=== PATIENT | male | born 2000 | race Caucasian/White ===

== ENCOUNTER 2020-08-21 15:26 | Emergency (ER) | payer OTHER ==
[2020-08-21 15:32] VITALS: BP 132/77
[2020-08-21] MEDS ORDERED: GLUCAGON 1 MG/ML VIAL IVP STA (15:52)
--- NOTE | 2020-08-21 16:40 | ED Physician Documentation ---
History of Present Illness - Stated complaint Stated Complaint: FB IN THROAT - Chief complaint Chief Complaint: Heent - History obtained from History obtained from: Patient - Additonal information Additional information: 20yM previously healthy p/w foreign body sensation while eating fried rice today. pain is constant, mild, sudden onset, localized to the throat, a/w inability to swallow fluids/solids. denies other issues. denies sob or stridor. no cough Review of Systems Constitutional: denies: Fever Respiratory: denies: Cough GI: reports: Other (bolus sensation) PD PAST MEDICAL HISTORY - Past Medical History Past Medical History: No - Past Surgical History Past Surgical History: No - Allergies Allergies/Adverse Reactions: Allergies Allergy/AdvReac Type Severity Reaction Status Date / Time No Known Drug Allergies Allergy Verified 08/21/20 15:32 - Social History Does the pt smoke?: No Smoking Status: Never smoker Does the pt have substance abuse?: No PD ED PE NORMAL - Vitals Vital signs reviewed: Yes - General General: Alert and oriented X 3, No acute distress, Well developed/nourished - HEENT HEENT: Atraumatic, PERRL, EOMI, Moist mucous membranes, Pharynx benign - Cardiac Cardiac: RRR - Respiratory Respiratory: No respiratory distress, Clear bilaterally - Derm Derm: Normal color, Warm and dry - Neuro Neuro: Alert and oriented X 3 Results - Vitals Vitals: Vital Signs - 24 hr 08/21/20 15:28 Heart Rate 86 Respiratory 14 Rate Blood Pressure 132/77 H O2 Saturation 99 Oxygen O2 Source Room air PD MEDICAL DECISION MAKING - ED course ED course: 20-year-old with prior history of bullous sensation in the throat presents with bolus sensation after eating fried rice. This has now resolved after glucagon, pop rocks, and soda. Return precautions given. Patient will follow up with his primary doctor. Departure - Departure Disposition: 01 Home, Self Care Clinical Impression: Bolus impaction of digestive tract Condition: Good Instructions: ED Foreign Body Esophageal Rslv, ED Screening Exam Medical Nonurgent Comments: You were seen in the emergency department for a foreign body sensation in your throat. We gave you pop rocks, soda, and a medicine called glucagon and it resolved your issue. Return to the emergency department if you have any new or worsening symptoms or other concerns. Follow-up with your primary doctor Discharge Date/Time: 08/21/20 16:46
== END 2020-08-21 16:46 | disposition home or self-care (01) ==
LOC: ED 15:26
DX: R09.89 Other specified symptoms and signs involving the circulatory and respiratory systems (principal); T18.128A Food in esophagus causing other injury, initial encounter; X58.XXXA Exposure to other specified factors, initial encounter
CPT/HCPCS: 96374; 99284

== ENCOUNTER 2024-01-25 12:39 | Day surgery (SDC) | payer OTHER ==
--- NOTE | 2024-01-25 13:54 | ED Physician Documentation ---
PD HPI HEENT - Stated complaint Stated Complaint: PILL STUCK IN THROAT - Chief complaint Chief Complaint: General - History obtained from History obtained from: Patient - History of Present Illness Timing - onset: How many hours ago (1), Today (about noon.) Timing - duration: Hours (1) Timing - details: Abrupt onset, Still present (The patient states he had a grilled cheese sandwich and seemed to be swallowing okay. About 10 to 15 minutes later he took an ibuprofen tablet and felt that it would not go down and had to spit back up the water he drank with that. Subsequently he is spitting up saliva as well.) Location: Throat (He feels his esophagus is blocked and unable to swallow even saliva. Has happened several times previously.) Associated symptoms: Unable to swallow. No: Fever, Congestion, Rhinorrhea Similar symptoms before: Diagnosis (He has had this happen multiple times where he will have a feeling of initial bites of food stuck for several minutes and then improved. He has been to the ER twice for it in the last year or so and resolved with IV fluids/medications/carbonation. Denies regular reflux type symptoms or heartburn.) Recently seen: Not recently seen Review of Systems Constitutional: denies: Fever, Chills Nose: reports: Congestion. denies: Rhinorrhea / runny nose Throat: denies: Sore throat Respiratory: reports: Cough (mild) PD PAST MEDICAL HISTORY - Past Medical History Past Medical History: No Cardiovascular: None Respiratory: None Neuro: None Endocrine/Autoimmune: None GI: None : None HEENT: None Psych: None Musculoskeletal: None Derm: None - Past Surgical History Past Surgical History: No - Present Medications Home Medications: Ambulatory Orders Medication Instructions Recorded Confirmed No Known Home Medications 01/25/24 01/25/24 - Allergies Allergies/Adverse Reactions: Allergies Allergy/AdvReac Type Severity Reaction Status Date / Time No Known Drug Allergies Allergy Verified 01/25/24 14:06 - Social History Does the pt smoke?: No Smoking Status: Never smoker Does the pt have substance abuse?: No PD ED PE NORMAL - Vitals Vital signs reviewed: Yes - General General: Alert and oriented X 3, Well developed/nourished, Other (He is holding an emesis bag and spitting up saliva every couple of minutes. No noted blood.) - HEENT HEENT: Pharynx benign, Other (Normal voice and unlabored respirations without any wheezing.) - Cardiac Cardiac: RRR, No murmur - Respiratory Respiratory: No respiratory distress, Clear bilaterally - Abdomen Abdomen: Soft, Non tender - Derm Derm: Normal color, Warm and dry - Neuro Neuro: Alert and oriented X 3, No motor deficit, Normal speech Results - Vitals Vitals: Vital Signs - 24 hr 01/25/24 01/25/24 01/25/24 12:42 17:16 21:02 Temperature 37.3 C 36.9 C 36.5 C Heart Rate 83 69 77 Heart Rate [ Brachial] Respiratory 16 16 16 Rate Blood Pressure 129/73 115/66 118/56 L Blood Pressure [Left Brachial artery] O2 Saturation 100 100 99 01/25/24 01/25/24 01/25/24 21:05 21:10 21:15 Temperature 36.6 C 36.5 C 36.5 C Heart Rate 62 59 L 54 L Heart Rate [ Brachial] Respiratory 17 15 17 Rate Blood Pressure 118/56 L 112/60 113/58 L Blood Pressure [Left Brachial artery] O2 Saturation 100 100 100 01/25/24 01/25/24 01/25/24 21:21 21:33 21:41 Temperature 36.5 C 36.5 C 36.6 C Heart Rate 54 L 67 Heart Rate [ 67 Brachial] Respiratory 14 18 16 Rate Blood Pressure 115/55 L 121/74 Blood Pressure 132/76 H [Left Brachial artery] O2 Saturation 100 100 99 01/25/24 21:57 Temperature 37.0 C Heart Rate 64 Heart Rate [ Brachial] Respiratory 18 Rate Blood Pressure 123/79 Blood Pressure [Left Brachial artery] O2 Saturation 97 Oxygen O2 Source Room air - Labs Labs: Laboratory Tests 01/25/24 14:14 Sodium 139 Potassium 3.9 Chloride 105 Carbon Dioxide 29 Anion Gap 5.0 L BUN 10 Creatinine 0.9 Estimated GFR (MDRD) 104 Glucose 93 Calcium 9.4 Total Bilirubin 0.4 AST 23 ALT 20 Alkaline Phosphatase 59 Total Protein 6.9 Albumin 4.4 Globulin 2.5 Albumin/Globulin Ratio 1.8 Lipase 20 PD Medical Decision Making - ED course Complexity details: re-evaluated patient (Dr. Christian did finish with his office patients and came to see the patient here in the ER. This gave a bit more time to see if this would spontaneously or medication related improve. However the patient is still needing to spit up his saliva and seems esophageal impacted. Plan to go to the OR.), considered differential, d/w peoplesoft consultant (Dr. Long) ED course: The patient had taken an [id number] ibuprofen and felt like it got stuck in his esophagus and is unable to swallow saliva subsequently. He had eaten a grilled cheese sandwich about 20 minutes prior to that but did not feel anything was stuck at that point. He has had similar episodes occasionally that last for just a few minutes and then resolve. He has been to the ER twice in the last 2 years for obstructive type patterns like this that had resolved with IV fluids glucagon and carbonated beverages. He has not gotten a formal referral for GI or general surgery for endoscopy despite the several prior episodes. On the most recent ER visit, it was suggested he follow-up with his primary for such a referral. The patient states it did not go through the referral process. He denies any regular reflux type symptoms. He does not experience heartburn regularly. Otherwise healthy. Departure - Departure Disposition: ED Transfer to [facility] Clinical Impression: Food impaction of esophagus Condition: Stable Record reviewed to determine appropriate education?: Yes Discharge Date/Time: 01/25/24 20:22
[2024-01-25] MEDS: SODIUM CHLORIDE 0.9% 1,000 ML IV STA ×2 (14:28→15:41)
[2024-01-25] MEDS: LORazepam 2 MG/ML VIAL IVP STA ×2 (14:28→15:41)
[2024-01-25] MEDS: GLUCAGON 1 MG/ML VIAL IVP STA (14:29)
[2024-01-25 14:37] LABS: ALBUMIN 4.4 g/dL (3.2-5.5); ALBUMIN/GLOBULIN RATIO 1.8 (1.0-2.2); BILIRUBIN,TOTAL 0.4 mg/dL (0.2-1.0); CALCIUM 9.4 mg/dL (8.5-10.3); CREATININE 0.9 mg/dL (0.6-1.3); POTASSIUM 3.9 mmol/L (3.5-4.5); TOTAL PROTEIN 6.9 g/dL (6.4-8.9)
[2024-01-25] MEDS: PANTOPRAZOLE 40 MG VIAL IVP STA (18:05)
[2024-01-25] MEDS ORDERED: SUCCINYLCHOLINE 200 MG/10 ML VIAL ONE (20:19)
[2024-01-25] MEDS ORDERED: fentaNYL 100 MCG/2 ML VIAL ONE (20:19)
[2024-01-25] MEDS ORDERED: PROPOFOL 200 MG/20 ML VIAL IVP ONE (20:19)
[2024-01-25] MEDS ORDERED: MIDAZOLAM 2 MG/2 ML VIAL ONE (20:20)
--- NOTE | 2024-01-25 20:23 | HISTORY & PHYSICAL EXAMINATION ---
Chief Complaint - Chief Complaint Chief Complaint: food and single motrin tab stuck in esophagus History of Present Illness - History Obtained From Records Reviewed: yes History obtained from: pt Exam Limitations: none - History of Present Illness HPI Comment/Other: he had a grilled cheese and a single 200 motrin tab at lunch time. has not been able to swallow since. similar troubles over the last 3 years which would resolve. he has not had endoscopy. he does not describe heartburn troubles. History - Past Medical History Cardiovascular: reports: None Respiratory: reports: None Neuro: reports: None Endocrine/Autoimmune: reports: None GI: reports: None : reports: None HEENT: reports: None Psych: reports: None Musculoskeletal: reports: None Derm: reports: None MRSA Hx?: No Meds/Allgy - Home Medications Home Medications: Ambulatory Orders Medication Instructions Recorded Confirmed No Known Home Medications 01/25/24 01/25/24 - Allergies Allergies/Adverse Reactions: Allergies Allergy/AdvReac Type Severity Reaction Status Date / Time No Known Drug Allergies Allergy Verified 01/25/24 14:06 Review of Systems - Other Findings Other Findings: 10 pt ros as above otherwise unremarkable Exam - Vital Signs Vital Signs: Vital Signs x48h Temp Pulse Resp BP Pulse Ox 01/25/24 17:16 36.9 C 69 16 115/66 100 01/25/24 12:42 37.3 C 83 16 129/73 100 - Physical Exam General Appearance: positive: No acute distress, Alert ENT: positive: No signs of dehydration Neck: positive: No JVD, Trachea midline Respiratory: positive: No respiratory distress Cardiovascular: positive: Regular rate & rhythm Abdomen: positive: No distention Neurologic/Psychiatric: positive: Oriented x3 Conclusion/Plan - Problem List (1) Food impaction of esophagus Conclusion/Plan: plan egd with biopsies and attempt to clear the esophageal obstruction. parq held and consent obtained - Lab Results Fish Bones: 01/25/24 14:14
[2024-01-25] MEDS ORDERED: DEXAMETHASONE 4 MG/ML VIAL ONE (20:38)
[2024-01-25] MEDS ORDERED: ONDANSETRON 4 MG/2 ML VIAL ONE (20:38)
[2024-01-25] MEDS ORDERED: HYDROmorphone 1 MG/ML CARPUJECT ONE (20:40)
[2024-01-25] MEDS: LACTATED RINGERS 1,000 ML IV ONE (21:06)
[2024-01-25] MEDS ORDERED: ONDANSETRON 4 MG/2 ML VIAL IVP PRN ×2 (21:11→21:13)
[2024-01-25] MEDS ORDERED: fentaNYL 100 MCG/2 ML VIAL IVP PRN (21:13)
[2024-01-25] MEDS ORDERED: MORPHINE 2 MG/ML CARPUJECT IVP PRN (21:13)
[2024-01-25] MEDS ORDERED: NALOXONE 0.4 MG/ML VIAL IVP PRN (21:13)
[2024-01-25] MEDS ORDERED: ATROPINE ABBOJECT 1 MG/10 ML SYRINGE IVP PRN (21:13)
[2024-01-25] MEDS ORDERED: HYDROmorphone 0.5 MG/0.5 ML SYRINGE IVP PRN (21:13)
--- NOTE | 2024-01-25 21:13 | ANESTHESIA ---
Pre-Anesthesia VS, & Labs - Diagnosis Food impaction - Procedure EGD with biopsy. Removal of food impaction Vital Signs: Temp Pulse Resp BP Pulse Ox O2 Flow Rate 36.6 C 62 17 118/56 L 100 01/25/24 21:05 01/25/24 21:05 01/25/24 21:05 01/25/24 21:05 01/25/24 21:05 Height: 6 ft 1 in Weight (kg): 79.379 kg Body Mass Index: 23.1 BMI Classification: Normal - NPO >8 hours - Lab Results Current Lab Results: Laboratory Tests 01/25/24 14:14: Sodium 139, Potassium 3.9, Chloride 105, Carbon Dioxide 29, Anion Gap 5.0 L, BUN 10, Creatinine 0.9, Estimated GFR (MDRD) 104, Glucose 93, Calcium 9.4, Total Bilirubin 0.4, AST 23, ALT 20, Alkaline Phosphatase 59, Total Protein 6.9, Albumin 4.4, Globulin 2.5, Albumin/Globulin Ratio 1.8, Lipase 20 Lab results reviewed: Yes Fish Bones: 01/25/24 14:14 Home Medications and Allergies Home Medications: Ambulatory Orders No Known Home Medications 01/25/24 Active Medications Sodium Chloride (Normal Saline 0.9%) 1,000 mls @ 150 mls/hr IV .[id number] STA Stop: 01/25/24 22:05 Last Admin: 01/25/24 15:41 Dose: 150 mls/hr No Known Home Medications 01/25/24 Allergies/Adverse Reactions: Allergies Allergy/AdvReac Type Severity Reaction Status Date / Time No Known Drug Allergies Allergy Verified 01/25/24 14:06 Anes History & Medical History - Anesthetic History Family history of Anesthesia Complications: Denies Family history of Malignant Hyperthermia: Denies - Medical History Cardiovascular: reports: None Pulmonary: reports: None Gastrointestinal: reports: None Urinary: reports: None Neuro: reports: None Musculoskeletal: reports: None Endocrine/Autoimmune: reports: None Blood Disorders: reports: None Skin: reports: None Smoking Status: Never smoker Psychosocial: reports: No issues indicated History of Cancer?: No Exam General: Alert, Oriented x3, Cooperative, No acute distress Dental: WNL Mouth Openin Fingerbreadth Neck Mobility: Normal Mallampati classification: II Thyromental Distance: 4-6 cm Mental/Cognitive Status: Alert/Oriented X3, Normal for patient Plan Anesthesia Type: General (RSI) Consent for Procedure(s) Verified and Reviewed: Yes Code Status: Attempt Resuscitation ASA classification: 1-Healthy patient Is this case an emergency?: Yes
--- NOTE | 2024-01-25 21:29 | ANESTHESIA POST OP EVALUATION ---
Anesthesia Post Eval - Post Anesthesia Eval Vitals: Last Vital Signs Temp 36.5 C 01/25/24 21:21 Pulse 54 L 01/25/24 21:21 Resp 14 01/25/24 21:21 BP 115/55 L 01/25/24 21:21 Pulse Ox 100 01/25/24 21:21 O2 Flow Rate CV Function Including HR & BP: Stable Pain Control: Satisfactory Nausea & Vomiting: Negative Mental Status: Baseline Respiratory Status: Airway Patent Hydration Status: Satisfactory Anesthesia Complications: None
[2024-01-25] MEDS ORDERED: LACTATED RINGERS 1,000 ML IV SCH (22:00)
[2024-01-25 22:03] VITALS: BP 123/79; O2SAT 97
== END 2024-01-25 22:15 | disposition home or self-care (01) ==
LOC: ED 12:39 → SDS 20:10 → MS2 21:43 → SDS 22:15
PROVIDERS: ATTEND Surgery
PROC: 0DB28ZX Excision of Middle Esophagus, Via Natural or Artificial Opening Endoscopic, Diagnostic (ICD-10-PCS; 2024-01-25)
PROC: 0DB38ZX Excision of Lower Esophagus, Via Natural or Artificial Opening Endoscopic, Diagnostic (ICD-10-PCS; principal; 2024-01-25 20:15)
DX: T18.128A Food in esophagus causing other injury, initial encounter (principal); W44.F3XA Food entering into or through a natural orifice, initial encounter; T18.198A Other foreign object in esophagus causing other injury, initial encounter; W44.E9XA Other non-magnetic metal objects entering into or through a natural orifice, initial encounter; K20.90 Esophagitis, unspecified without bleeding
CPT/HCPCS: 36415; 43239; 43247; 80053; 83690; 96374; 96375; 96376; 99284; 99285; J0330; J1170; J1610; J2060; J7120